=== PATIENT | male | born 1990 | race American Indian/Alaskan Native ===

== ENCOUNTER 2021-03-11 08:00 | Outpatient (CLI) | payer OTHER | END 2021-03-11 08:30 | disposition home or self-care (01) | LOC: PPH VACUNA 08:00 | PROVIDERS: ATTEND Emergency Medicine Pediatric Emergency Medicine | DX: Z23 Encounter for immunization (principal) ==

== ENCOUNTER 2021-12-26 12:56 | Outpatient (CLI) | payer OTHER | END 2021-12-26 12:57 | disposition home or self-care (01) | LOC: LAB 12:56 | PROVIDERS: ATTEND Obstetrics & Gynecology | DX: Z20.818 Contact with and (suspected) exposure to other bacterial communicable diseases (principal) ==